=== PATIENT | female | born 1995 | race Caucasian/White ===

== ENCOUNTER 2022-01-25 16:23 | Emergency (ER) | payer MEDICAID ==
[~2022-01-25] VITALS: Ht 165.1 cm; Wt 91.0 kg
[2022-01-25 16:26] VITALS: BP 117/57
[2022-01-25 19:07] LABS: BASOPHILS % 0.5 % (0.0-2.0); EOSINOPHILS % 0.8 % (0.0-5.0); HEMATOCRIT. 37.2 % (36.0-48.0); HEMOGLOBIN. 13.2 g/dL (12.0-16.0); LYMPHOCYTES % 19.1 % (20.0-50.0); MEAN CORPUSCULAR HEMOGLOBIN 32.8 pg (28.0-32.0); MEAN CORPUSCULAR VOLUME 92.8 fL (81.0-99.0); MEAN PLATELET VOLUME 8.6 fl (7.4-10.4); MONOCYTES % 5.5 % (2.0-8.0); NEUTROPHILS % 74.1 % (40.0-76.0); PLATELET 253 x1000/uL (130-400); RED BLOOD CELL COUNT 4.01 mill/uL (4.2-5.4)
[2022-01-25 19:16] LABS: CHLORIDE 108 mEq/L (98-107)
[2022-01-25 19:39] LABS: B-HCG QUANTITATIVE 18412 mIU/mL (<3)
== END 2022-01-26 04:32 | disposition left against medical advice (07) ==
LOC: ER 16:23
DX: O46.92 Antepartum hemorrhage, unspecified, second trimester (principal); Z3A.19 19 weeks gestation of pregnancy
CPT/HCPCS: 36415; 76805; 80053; 84702; 85025; 86850; 86900; 99284